=== PATIENT | female | born 2000 | race Caucasian/White ===

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

== ENCOUNTER 2021-01-28 18:36 | Emergency (ER) | payer OTHER ==
[~2021-01-28] VITALS: Ht 172.7 cm; Wt 83.9 kg
[2021-01-28 18:40] VITALS: BP 147/66
--- NOTE | 2021-01-28 18:40 | NUR ---
[address]
--- NOTE | 2021-01-28 18:41 | NUR ---
[place] [employer] officer at bedside
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
[2021-01-28 19:06] LABS: BASOPHILS # (AUTO) 0.1 K/uL (0.00-0.22); BASOPHILS % (AUTO) 0.5 % (0.0-2.0); EOSINOPHILS % (AUTO) 0.1 % (0.0-4.0); HEMOGLOBIN 12.6 g/dL (12.0-16.0); LYMPHOCYTES % (AUTO) 23.1 % (20.5-51.1); MEAN CORPUSCULAR HEMOGLOBIN 31 pg (27-31); MEAN CORPUSCULAR HGB CONC 34 g/dL (33-37); MEAN CORPUSCULAR VOLUME 89.9 fL (80-94); MONOCYTES # (AUTO) 0.6 K/uL (0.8-1.0); MONOCYTES % (AUTO) 4.9 % (1.7-9.3); NEUTROPHILS # (AUTO) 9.3 K/uL (1.8-7.7); NEUTROPHILS % (AUTO) 71.4 % (42.2-75.2); PLATELET COUNT (AUTO) 387 K/uL (140-450); RED BLOOD CELL COUNT(AUTO) 4.11 MIL/uL (4.20-5.40); RED CELL DISTRIBUTION WIDTH 12.7 % (11.6-13.7)
--- NOTE | 2021-01-28 19:06 | NUR ---
Blood sample handed to CPT Douglas at ER bedside
--- NOTE | 2021-01-28 19:10 | NUR ---
David ferrer & lupe collected, handed to CPT Douglas at ER bedside
--- NOTE | 2021-01-28 19:10 | NUR ---
Patient ambulated to restroom accompanied with female medical records coordinator
--- NOTE | 2021-01-28 19:13 | NUR ---
PT MOVED TO BED #5.
--- NOTE | 2021-01-28 19:16 | NUR ---
Report and transfer of care endorsed to LEORA Mayorga.
--- NOTE | 2021-01-28 19:17 | NUR ---
[facility] #: [phone] ([facility])
[2021-01-28 19:21] LABS: ALBUMIN 4.2 g/dL (3.4-5.0); ANION GAP 15.6 (8-16); ASPARTATE AMINOTRANSFERASE 19 U/L (15-37); CARBON DIOXIDE 22.9 mmol/L (21-32); CHLORIDE 110 mmol/L (98-107); CREATININE 0.8 mg/dL (0.6-1.3); GFR ARICAN-AMERICAN 118 mL/min (>90); GLUCOSE 109 mg/dL (74-106); POTASSIUM 3.5 mmol/L (3.5-5.1); SODIUM SERUM 145 mmol/L (136-145); TOTAL BILIRUBIN 0.2 mg/dL (0.0-1.0); UREA NITROGEN, BLOOD 8 mg/dL (7-18)
[2021-01-28 19:22] LABS: ACETAMINOPHEN < 0.5 ug/ml (10-30); SALICYLATE < 2.8 mg/dL (2.8-20.0)
--- NOTE | 2021-01-28 19:25 | NUR ---
RECEIVED REPORT FROM INDUSTRIAL INSULATOR NURSE LONG FOR CONTINUITY OF CARE, PT IN STABLE CONDITION.
[2021-01-28] MEDS ORDERED: NACL 0.9% 2,000 ML IV ONE (19:40)
[2021-01-28 19:47] LABS: BARBITURATE, URINE NEGATIVE ng/ml (NEG <=200)
--- NOTE | 2021-01-28 19:47 | NUR ---
INFORMED MOTHER SUSAN REGARDING DAUGHTERS 5150 HOLD, SHE VEBELIZED UNDERSTANDING. PT SPOKE WITH MD ABBOTT INFORMING HER SHE IS ON A HOLD AND THAT HER BLOOD ALCOHOL LEVEL IS HIGH AND THAT SHE CANNOT SPEAK WITH PSYCH MD ARREOLA BLOOD ALCOHOL LEVEL IS DOWN. PT TRIED TO LEAVE BUT WAS ESCORTED BACK TO HER ROOM .
[2021-01-28 19:48] LABS: BENZODIAZEPINE, URINE NEGATIVE ng/mL (NEG <=200)
[2021-01-28 19:49] LABS: CANNABINOID, URINE POSITIVE ng/mL (NEG <=50); COCAINE, URINE NEGATIVE ng/mL (NEG <=300); OPIATE, URINE NEGATIVE ng/mL (NEG <=2000); PHENCYCLIDINE SCREEN,URINE NEGATIVE ng/mL (NEG <=25)
--- NOTE | 2021-01-28 20:36 | NUR ---
IV STARTED 22G ON LEFT HAND. BOLUS OF NORMAL SALINE STRARTED.
[2021-01-28] MEDS ORDERED: LORazepam 1 MG TAB PO ONE (20:45)
--- NOTE | 2021-01-28 21:50 | NUR ---
PT RESTLESS IN HER ROOM, SHE DECLOINED TO CONTINUE WITH IV BOLUS, . PT SAID SHE HAS TO USE THE BATHROOM AGAIN. (SHE HAD JUST USED THE TOLIET LESS THAN 1/2 HOUR AGO). PT CAME OUT OF HER ROM AND STOOD NEXT TO NURSE TO WAIT FOR THE TOILET TO BE AVAILABLE, THEN SHE JUST RAN TO THE DOOR OF THE ER AND RAN OUT THE LOBBY DOOR WEARING ONLY HOSPITAL GOWN. WITH SOCKS. PT LEFT ALL BELONGINS HERE.
--- NOTE | 2021-01-28 22:00 | NUR ---
PATIENT ELOPED FROM FACILITY. DISCHARGE INSTRUCTIONS NOT GIVEN TO PATIENT. DR. ABBOTT NOTIFIED. JODI GARCIA CALLED TO REPORT FOR PATIENT ELOPED. IV STILL IN PLACE FOR PATIENT.
--- NOTE | 2021-01-28 22:37 | NUR ---
NAOMI GARCIA HERE THEY ARE CONTINUING TO LOOK FOR HER. MAY NEED TO FILL OUT MISING PERSONS REPORT.
== END 2021-01-28 22:00 | disposition left against medical advice (07) ==
LOC: MED 18:36
DX: F10.129 Alcohol abuse with intoxication, unspecified (principal); Z20.822 Contact with and (suspected) exposure to COVID-19; R45.851 Suicidal ideations; F19.10 Other psychoactive substance abuse, uncomplicated; F17.210 Nicotine dependence, cigarettes, uncomplicated; J45.909 Unspecified asthma, uncomplicated; Z90.49 Acquired absence of other specified parts of digestive tract
CPT/HCPCS: 80053; 80305; 85025; 87426; 96360; 99285; G0480; G0482; J7030; U0003

== ENCOUNTER 2021-04-21 20:46 | Emergency (ER) | payer OTHER ==
[~2021-04-21] VITALS: Ht 167.6 cm; Wt 63.5 kg
[2021-04-21 20:50] VITALS: BP 140/93
--- NOTE | 2021-04-21 20:52 | NUR ---
PT OFFLOADED TO [facility]
--- NOTE | 2021-04-21 21:00 | NUR ---
PATIENT LEFT WITHOUT BEING SEEN BY DR. REA. NO FURTHER CARE PROVIDED FOR PATIENT.
--- NOTE | 2021-04-21 21:00 | NUR ---
PER EMS AFTER THE PT WAS OFFLOADED TO THE LOBBY THEY OBSERVED HER LEAVING FACILITY.
== END 2021-04-21 21:00 | disposition left against medical advice (07) ==
LOC: MED 20:46
DX: F41.9 Anxiety disorder, unspecified (principal); Z53.21 Procedure and treatment not carried out due to patient leaving prior to being seen by health care provider

== ENCOUNTER 2021-07-24 17:26 | Emergency (ER) | payer OTHER ==
[~2021-07-24] VITALS: Ht 172.7 cm; Wt 79.4 kg
[2021-07-24 17:28] VITALS: BP 127/81
--- NOTE | 2021-07-24 17:53 | NUR ---
PT AMB TO BED 6.
[2021-07-24] MEDS ORDERED: NACL 0.9% 1,000 ML IV SCH (17:55)
--- NOTE | 2021-07-24 17:55 | NUR ---
21 Y/O FEMALE BIB SELF C/O VAGINAL BLEEDING , MID ABDOMINAL PAIN , NAUSEA X 1 WEEK. STOPPED DRINKING 1 WEEK AGO AND STOPPED METH 2 DAYS AGO. PT STATES SHE IS HERE BECAUSE SHE IS CONCERNED "SHE MAY BE ." PT DENIES CHEST PAIN, SOB. PT DENIES FEVER, CHILLS. PT IS ALERT AND ORIENTED X4. PMH: METH USED , ALCOHOLISM, WEED SMOKING
[2021-07-24 18:07] LABS: BASOPHILS # (AUTO) 0.1 K/uL (0.00-0.22); BASOPHILS % (AUTO) 0.6 % (0.0-2.0); EOSINOPHILS # (AUTO) 0.1 K/uL (0-0.4); EOSINOPHILS % (AUTO) 1.6 % (0.0-4.0); HEMATOCRIT 39.9 % (36-48); HEMOGLOBIN 13.3 g/dL (12.0-16.0); LYMPHOCYTES % (AUTO) 21.6 % (20.5-51.1); MEAN CORPUSCULAR HEMOGLOBIN 30 pg (27-31); MEAN CORPUSCULAR HGB CONC 33 g/dL (33-37); MEAN CORPUSCULAR VOLUME 89.8 fL (80-94); MONOCYTES # (AUTO) 0.6 K/uL (0.8-1.0); MONOCYTES % (AUTO) 6.6 % (1.7-9.3); NEUTROPHILS # (AUTO) 6.4 K/uL (1.8-7.7); NEUTROPHILS % (AUTO) 69.6 % (42.2-75.2); PLATELET COUNT (AUTO) 360 K/uL (140-450); RED BLOOD CELL COUNT(AUTO) 4.44 MIL/uL (4.20-5.40); RED CELL DISTRIBUTION WIDTH 13.1 % (11.6-13.7); WHITE BLOOD COUNT (AUTO) 9.2 K/uL (4.5-11.0)
[2021-07-24 18:22] LABS: ALBUMIN 4.4 g/dL (3.4-5.0); ANION GAP 14.8 (8-16); CARBON DIOXIDE 25.8 mmol/L (21-32); CREATININE 0.9 mg/dL (0.6-1.3); POTASSIUM 3.6 mmol/L (3.5-5.1); TOTAL BILIRUBIN 0.7 mg/dL (0.0-1.0)
[2021-07-24 18:56] VITALS: BP 127/81
--- NOTE | 2021-07-24 18:57 | NUR ---
Patient discharged with v/s stable. Written and verbal after care instructions given and explained. Patient verbalized understanding. Ambulatory with steady gait. All questions addressed prior to discharge. Advised to follow up with PMD.
== END 2021-07-24 18:57 | disposition home or self-care (01) ==
LOC: MED 17:26
DX: N93.9 Abnormal uterine and vaginal bleeding, unspecified (principal); J45.909 Unspecified asthma, uncomplicated; F17.200 Nicotine dependence, unspecified, uncomplicated; Z90.49 Acquired absence of other specified parts of digestive tract
CPT/HCPCS: 36415; 80053; 81002; 81025; 83690; 85025; 99283; J7030

== ENCOUNTER 2022-12-03 13:23 | Emergency (ER) | payer MEDICAID, OTHER ==
[~2022-12-03] VITALS: Ht 172.7 cm; Wt 104.3 kg
[2022-12-03 13:38] VITALS: BP 115/89; PULSE 135; RESP 18; TEMP 100.4; O2SAT 98
[2022-12-03] MEDS ORDERED: IBUPROFEN 800 MG TAB PO ONE (15:20)
[2022-12-03 16:03] LABS: APPEARANCE,URINE CLEAR (CLEAR); BILIRUBIN,URINE NEGATIVE (NEGATIVE); BLOOD, URINE 1+ (NEGATIVE); COLOR,URINE YELLOW (YELLOW); LEUKOCYTE ESTERASE ,URINE 3+ (NEGATIVE); NITRITE, URINE POSITIVE (NEGATIVE); PROTEIN,URINE 2+ (NEGATIVE); UGLUCOSE NEGATIVE (NEGATIVE)
[2022-12-03] MEDS ORDERED: CEFD300C3 PO (16:12)
[2022-12-03] MEDS ORDERED: MIRABULK PO (16:12)
[2022-12-03] MEDS ORDERED: MAGN296S68 PO (16:12)
[2022-12-03] MEDS ORDERED: PYR100 PO (16:12)
[2022-12-03] MEDS ORDERED: IBUP-2218 PO (16:12)
[2022-12-03] MEDS ORDERED: ACET-10509 PO (16:12)
[2022-12-03 16:16] LABS: BACTERIA,URINE >30 (MANY) /HPF (None Seen); MUCUS,URINE None Seen /LPF (None Seen); RBC,URINE 20-50 /HPF (0-5); SQUAMOUS EPITHELIAL CELL,UR 0-3 (FEW) /LPF (0-3 (FEW)); TRICHOMONAS,URINE None Seen /HPF (None Seen); WBC,URINE >25 (MANY) /HPF (0-5); WHITE BLOOD CELL CASTS,URINE None Seen /LPF (None Seen); YEAST,URINE None Seen /HPF (None Seen)
[2022-12-03] MEDS ORDERED: NACL 0.9% 1,000 ML IV ONE (16:45)
[2022-12-03] MEDS ORDERED: cefTRIAXone 1,000 MG VIAL ONE (18:05)
[2022-12-03 18:38] LABS: BASOPHILS # (AUTO) 0.1 K/uL (0.00-0.22); BASOPHILS % (AUTO) 0.5 % (0.0-2.0); EOSINOPHILS % (AUTO) 0.4 % (0.0-4.0); HEMATOCRIT 34.2 % (36-48); HEMOGLOBIN 11.6 g/dL (12.0-16.0); LYMPHOCYTES # (AUTO) 1.5 K/uL (2.5-16.5); LYMPHOCYTES % (AUTO) 16.2 % (20.5-51.1); MEAN CORPUSCULAR HEMOGLOBIN 32 pg (27-31); MEAN CORPUSCULAR HGB CONC 34 g/dL (33-37); MEAN CORPUSCULAR VOLUME 93.9 fL (80-94); MONOCYTES # (AUTO) 0.8 K/uL (0.8-1.0); MONOCYTES % (AUTO) 8.5 % (1.7-9.3); NEUTROPHILS # (AUTO) 7.1 K/uL (1.8-7.7); NEUTROPHILS % (AUTO) 74.4 % (42.2-75.2); PLATELET COUNT (AUTO) 248 K/uL (140-450); RED BLOOD CELL COUNT(AUTO) 3.65 MIL/uL (4.20-5.40); RED CELL DISTRIBUTION WIDTH 12.8 % (11.6-13.7); WHITE BLOOD COUNT (AUTO) 9.5 K/uL (4.8-10.8)
[2022-12-03 18:51] LABS: ALBUMIN 2.9 g/dL (3.4-5.0); ANION GAP 10.5 (8-16); CARBON DIOXIDE 24.8 mmol/L (21-32); POTASSIUM 3.3 mmol/L (3.5-5.1); TOTAL BILIRUBIN 0.7 mg/dL (0.0-1.0); TOTAL PROTEIN, SERUM 7.2 g/dL (6.4-8.2)
[2022-12-03 18:54] LABS: LACTIC ACID 1.3 mmol/L (0.4-2.0)
[2022-12-03 18:57] VITALS: BP 104/50; PULSE 98; RESP 18; TEMP 98.1; O2SAT 100
== END 2022-12-03 21:08 | disposition home or self-care (01) ==
LOC: MED 13:23
DX: N39.0 Urinary tract infection, site not specified (principal); K59.00 Constipation, unspecified; J45.909 Unspecified asthma, uncomplicated; Z90.49 Acquired absence of other specified parts of digestive tract; Z79.899 Other long term (current) drug therapy
CPT/HCPCS: 36415; 80053; 81001; 81025; 83605; 85025; 87040; 87086; 96365; 99284; J0696